=== PATIENT | male | born 1995 | race Caucasian/White ===

== ENCOUNTER 2017-11-23 20:05 | Inpatient (IN) ==
[2017-11-23 20:40] LABS: Bilirubin,Urine Negative (Negative); Blood,Urine Negative (Negative); Clarity,Urine Clear (Clear); Color,Urine Yellow (Yellow); Glucose,Urine (UA) Normal (Normal); Ketones,Urine Negative (Negative); Leukocyte Esterase,Urine Negative (Negative); Nitrite,Urine Negative (Negative); PH,Urine 6.5 pH Units (5.0-8.0); Protein,Urine Negative (Neg-Trace); Specific Gravity,Urine 1.028 (1.010-1.025); Urobilinogen,Urine Normal (Normal)
--- NOTE | 2017-11-23 21:00 | Emergency Department Note ---
Disposition Clinical Impression: Colitis Abdominal pain Qualifiers: Abdominal location: right lower quadrant Qualified Code(s): R10.31 - Right lower quadrant pain Anemia Qualifiers: Anemia type: iron deficiency Iron deficiency anemia type: chronic blood loss Qualified Code(s): D50.0 - Iron deficiency anemia secondary to blood loss ( chronic) Disposition: Admitted As Inpatient Condition: Fair Instructions: Abdominal Pain (ED), Anemia (ED) Reasons to Return/Additional Instructions: Please return to emergency room with any worsening symptoms including worsening of pain, lightheadedness, dizziness, feelings of passing out. Please be Sure to follow-up with your primary care physician as well as ep technologist within 3 days. Referrals: Clint Rodriguez MD [Partnered Physician] - Forms: ED Satisfaction Letter, Work/School Release Time of Disposition: 22:14 Abdominal Pain HPI - General Chief Complaint: ED Abdominal Pain Stated Complaint: Abdominal pain Time Seen by Provider: 11/23/17 20:31 Source: patient - History of Present Illness HPI Narrative: 22-year-old male with a past medical history of chronic abdominal pain presents to emergency room with abdominal pain. He states his pain has been present since he was a little kid and is located in the right lower quadrant, left lower quadrant, suprapubic, epigastric region. He describes the pain as both sharp and aching in nature. He had percent emergency room in July 2017 with similar symptoms and CT scan at that time revealed inflammation of the terminal ileum and colon possibly representing inflammatory bowel disease. He states he presents at this time as he now has insurance and can see a GI specialist, and his pain is also worsening and 9/10 intensity. No exacerbating or relieving symptoms. He also admits to chronic loose stools as well as intermittent vomiting following meals. Denies any symptoms of fevers, chills, chest pain, shortness of breath. Pain Scale: 9 - Related Data Home Medications Medication Instructions Recorded Confirmed Depression Pill 10/26/15 Omeprazole Magnesium [Prilosec Otc] 10/26/15 Previous Rx's Medication Instructions Recorded Ibuprofen [Motrin] 800 mg PO Q6-8H PRN #30 tablet 05/29/15 Acetaminophen w/Cod 300-30 mg 1 each PO Q6HR PRN #10 tablet 10/26/15 [Tylenol w/Codeine #3] Ciprofloxacin [Cipro] 500 mg PO BID 10 Days tablet 10/26/15 Sulfamethoxazole/Trimeth DS 1 each PO BID 10 Days tablet 10/26/15 [Bactrim DS] metroNIDAZOLE [Flagyl] 500 mg PO BID 10 Days tablet 10/26/15 methylPREDNISolone [Medrol] 4 mg PO TAPER #21 tablet 10/22/16 predniSONE [Prednisone] 20 mg PO DAILY #22 tablet 11/25/16 Ciprofloxacin HCl [Cipro] 500 mg PO BID #20 tablet 08/05/17 Ondansetron HCl [Zofran] 4 mg PO Q6HR PRN #20 tablet 08/05/17 PredniSONE [Deltasone] 20 mg PO DAILY #18 tablet 08/05/17 metroNIDAZOLE [Flagyl] 500 mg PO BID #20 tablet 08/05/17 Allergies Allergy/AdvReac Type Severity Reaction Status Date / Time No Known Allergies Allergy Verified 05/22/17 18:38 All systems ED: reviewed and negative except as stated. Review of Systems: As Per HPI Abdominal Pain PMH - Past Medical History Medical history: Reports: no medical history Male Surgical History: Reports: orthopedic, other, other Psychiatric history: Reports: no psych history - Social History Smoking status: Never smoker Alcohol use: Reports: none Drug use: Reports: none Physical Exam - General Limitations: no limitations General appearance: alert, anxious - Head Head exam: atraumatic, normocephalic, normal inspection - ENT ENT exam: normal exam, normal oropharynx, mucous membranes moist - Chest Chest inspection: Present: normal inspection, symmetric chest wall rise - Respiratory Respiratory exam: Present: normal lung sounds bilaterally. Absent: respiratory distress - Cardiovascular Cardiovascular exam: Present: regular rate, normal rhythm, normal heart sounds - Abdominal Exam Abdominal exam: Present: soft, tenderness, guarding, normal bowel sounds. Absent: distention, rebound, rigidity Abdominal tenderness: Present: RLQ, LLQ, epigastrium, mild - Extremities Exam Extremities exam: Present: normal inspection, full ROM. Absent: tenderness, pedal edema - Neurological Exam Neurological exam: Present: alert, oriented X3 - Psychiatric Psychiatric exam: Present: normal affect, normal mood - Skin Skin exam: Present: warm, dry, intact, normal color Course Course Narrative: We will obtain labs of CBC, BMP, lipase, hepatic panel. We will give Reglan for symptomatic relief. Vital Signs Temperature 98.4 F 11/23/17 20:07 Pulse Rate 86 11/23/17 20:07 Respiratory Rate 20 11/23/17 20:07 Blood Pressure 150/85 11/23/17 20:07 O2 Sat by Pulse Oximetry 100 11/23/17 20:07 Temperature 98.4 F 11/23/17 20:07 Pulse Rate 80 11/23/17 22:31 Respiratory Rate 16 11/23/17 22:31 Blood Pressure 130/76 11/23/17 22:31 O2 Sat by Pulse Oximetry 100 11/23/17 22:31 Oxygen Delivery Oxygen Delivery Room Air Abdominal Pain - MDM Narrative Medical decision making narrative: 22-year-old male presents to emergency department with chronic abdominal pain. Labs significant for a hemoglobin of 7.5. We did at this point for stool guaiac test which was negative. He will be discharged home with close follow- up with primary care physician as well as ep technologist this time. - Lab Data Result diagrams: 11/23/17 20:46 11/23/17 20:46 Lab Results 11/23/17 11/23/17 11/23/17 Range/Units 20:24 20:46 20:46 WBC 7.2 (4.3-11.1) K/mcL RBC 4.31 (4.19-5.50) M/mcL Hgb 7.5 L (12.9-16.9) g/dL Hct 28.1 L (37.5-50.1) % MCV 65.2 L (83.0-100.0) fL MCH 17.4 L (28.0-33.3) pg MCHC 26.7 L (31.6-35.5) g/dL RDW 15.4 H (11.5-14.5) % Plt Count 480 H (140-400) K/mcL MPV 10.6 (9.4-12.4) fL Immature Gran % 0.4 (0-4) % Seg Neutrophils % 58.7 % Lymphocytes % 23.1 % Monocytes % 9.6 % Eosinophils % 7.1 % Basophils % 1.1 % Neutrophils # 4.2 (1.6-8.9) K/mcL Lymphocytes # 1.7 (0.6-4.6) K/mcL Monocytes # 0.7 (0.0-1.3) K/mcL Eosinophils # 0.5 (0.0-0.6) K/mcL Basophils # 0.1 (0.0-0.2) K/mcL Hypochromasia Present A (Not Present) Microcytosis Present A (Not Present) Sodium 138 (136-145) mEq/L Potassium 3.8 (3.5-5.1) mEq/L Chloride 107 (98-107) mEq/L Carbon Dioxide 25 (23-29) mEq/L BUN 10 (6-20) mg/dL Creatinine 0.76 (0.70-1.30) mg/dL Est GFR ( Amer) > 60 (> 60) Est GFR (Non-Af Amer) > 60 (> 60) BUN/Creatinine Ratio 13 (6-26) Glucose 93 (70-105) mg/dL Calculated Osmolality 285 (280-300) Calcium 9.2 (8.6-10.3) mg/dL Total Bilirubin 0.8 (0.3-1.0) mg/dL Direct Bilirubin 0.1 (0.0-0.2) mg/dL Indirect Bilirubin 0.7 (0.0-1.2) mg/dL AST 13 (13-39) Units/L ALT 20 (7-52) Units/L Alkaline Phosphatase 80 (34-104) Units/L Serum Total Protein 7.1 (6.4-8.9) g/dL Albumin 4.4 (3.5-5.7) g/dL Globulin 2.7 (2.4-3.5) g/dL Albumin/Globulin Ratio 1.6 (1.1-2.2) Lipase 19 (11-82) Units/L Urine Color Yellow (Yellow) Urine Clarity Clear (Clear) Urine pH 6.5 (5.0-8.0) pH Units Ur Specific Dickinson 1.028 H (1.010-1.025) Urine Protein Negative (Neg-Trace) mg/dL Urine Glucose (UA) Normal (Normal) mg/dL Urine Ketones Negative (Negative) mg/dL Urine Blood Negative (Negative) Urine Nitrite Negative (Negative) Urine Bilirubin Negative (Negative) Urine Urobilinogen Normal (Normal) mg/dL Ur Leukocyte Esterase Negative (Negative) Ur Culture Indicated? NO (NO) Blood Type 11/23/17 Range/Units 23:09 WBC (4.3-11.1) K/mcL RBC (4.19-5.50) M/mcL Hgb (12.9-16.9) g/dL Hct (37.5-50.1) % MCV (83.0-100.0) fL MCH (28.0-33.3) pg MCHC (31.6-35.5) g/dL RDW (11.5-14.5) % Plt Count (140-400) K/mcL MPV (9.4-12.4) fL Immature Gran % (0-4) % Seg Neutrophils % % Lymphocytes % % Monocytes % % Eosinophils % % Basophils % % Neutrophils # (1.6-8.9) K/mcL Lymphocytes # (0.6-4.6) K/mcL Monocytes # (0.0-1.3) K/mcL Eosinophils # (0.0-0.6) K/mcL Basophils # (0.0-0.2) K/mcL Hypochromasia (Not Present) Microcytosis (Not Present) Sodium (136-145) mEq/L Potassium (3.5-5.1) mEq/L Chloride (98-107) mEq/L Carbon Dioxide (23-29) mEq/L BUN (6-20) mg/dL Creatinine (0.70-1.30) mg/dL Est GFR ( Amer) (> 60) Est GFR (Non-Af Amer) (> 60) BUN/Creatinine Ratio (6-26) Glucose (70-105) mg/dL Calculated Osmolality (280-300) Calcium (8.6-10.3) mg/dL Total Bilirubin (0.3-1.0) mg/dL Direct Bilirubin (0.0-0.2) mg/dL Indirect Bilirubin (0.0-1.2) mg/dL AST (13-39) Units/L ALT (7-52) Units/L Alkaline Phosphatase (34-104) Units/L Serum Total Protein (6.4-8.9) g/dL Albumin (3.5-5.7) g/dL Globulin (2.4-3.5) g/dL Albumin/Globulin Ratio (1.1-2.2) Lipase (11-82) Units/L Urine Color (Yellow) Urine Clarity (Clear) Urine pH (5.0-8.0) pH Units Ur Specific Dickinson (1.010-1.025) Urine Protein (Neg-Trace) mg/dL Urine Glucose (UA) (Normal) mg/dL Urine Ketones (Negative) mg/dL Urine Blood (Negative) Urine Nitrite (Negative) Urine Bilirubin (Negative) Urine Urobilinogen (Normal) mg/dL Ur Leukocyte Esterase (Negative) Ur Culture Indicated? (NO) Blood Type B NEGATIVE Attestation Statement - Attestation Attestation: I, Jesus Pena, examined this patient and my medical decision-making was reviewed with the ETCHER HAND/PA/Advanced Practice Nurse/Resident Physician. I agree with the documented findings, disposition and treatment plan as described except to the extent set forth below. 22-year-old male presents emergency Department with concerns of right lower quadrant abdominal pain, persistent diarrhea, weakness, fatigue and near syncope. Patient has a history of inflammation of the colon on the right lower quadrant however he did not follow up with GI in the past. He should not states his symptoms are similar today as they were then. Patient is anemic at 7.5 and states he feels near syncopal with minimal exertion. Patient will be transfused and admitted to the hospital for further care and evaluation and likely GI consult. Patient likely has Crohn's disease, he was started on Cipro and Flagyl and Solu-Medrol.
[2017-11-23 21:04] LABS: Basophils # 0.1 K/mcL (0.0-0.2); Basophils % 1.1 %; Eosinophils # 0.5 K/mcL (0.0-0.6); Eosinophils % 7.1 %; Hematocrit 28.1 % (37.5-50.1); Immature Granulocytes % 0.4 % (0-4); Lymphocytes # 1.7 K/mcL (0.6-4.6); Lymphocytes % 23.1 %; Mean Corpuscular HGB Conc 26.7 g/dL (31.6-35.5); Mean Corpuscular Hemoglobin 17.4 pg (28.0-33.3); Mean Corpuscular Volume 65.2 fL (83.0-100.0); Mean Platelet Volume 10.6 fL (9.4-12.4); Monocytes # 0.7 K/mcL (0.0-1.3); Monocytes % 9.6 %; Neutrophils # 4.2 K/mcL (1.6-8.9); Platelet Count 480 K/mcL (140-400); Red Blood Count 4.31 M/mcL (4.19-5.50); Red Cell Distribution Width 15.4 % (11.5-14.5); Segmented Neutrophils % 58.7 %
[2017-11-23] MEDS ORDERED: Metoclopramide 10 MG/2 ML VIAL IVP ONE (21:04)
[2017-11-23 21:33] LABS: Alanine Aminotransferase 20 Units/L (7-52); Albumin 4.4 g/dL (3.5-5.7); Albumin/Globulin Ratio 1.6 (1.1-2.2); Alkaline Phosphatase 80 Units/L (34-104); Aspartate Amino Transferase 13 Units/L (13-39); BUN/Creatinine Ratio 13 (6-26); Bilirubin,Direct 0.1 mg/dL (0.0-0.2); Bilirubin,Indirect 0.7 mg/dL (0.0-1.2); Bilirubin,Total 0.8 mg/dL (0.3-1.0); Blood Urea Nitrogen 10 mg/dL (6-20); Calcium 9.2 mg/dL (8.6-10.3); Carbon Dioxide 25 mEq/L (23-29); Chloride 107 mEq/L (98-107); Globulin 2.7 g/dL (2.4-3.5); Glucose 93 mg/dL (70-105); Lipase 19 Units/L (11-82); Osmolality,Calculated 285 (280-300); Potassium 3.8 mEq/L (3.5-5.1); Sodium 138 mEq/L (136-145); Total Protein 7.1 g/dL (6.4-8.9); eGFR For African Americans > 60 (> 60); eGFR For Non-African Americans > 60 (> 60)
[2017-11-23 21:36] LABS: Hemoglobin 7.5 g/dL (12.9-16.9)
[2017-11-23 21:37] LABS: Hypochromasia Present (Not Present); Microcytosis Present (Not Present)
[2017-11-23] MEDS ORDERED: MetroNIDAZOLE 500 MG/100 ML 500 MG/100 ML BAG IVPB ONE (22:31)
[2017-11-23] MEDS ORDERED: methylPREDNISolone 125 MG/2 ML VIAL IVP ONE (22:31)
[2017-11-24] MEDS ORDERED: 0.9 % Sodium Chloride 250 ML ONE (00:56)
[2017-11-24] MEDS ORDERED: traMADol 50 MG TABLET PO PRN (04:00)
[2017-11-24] MEDS ORDERED: Naloxone 0.4 MG/ML INJ IVP PRN (04:00)
[2017-11-24] MEDS ORDERED: Acetaminophen 325 MG TABLET PO PRN (04:00)
[2017-11-24] MEDS ORDERED: *HR* OxyCODONE Immed Rel 5 MG TABLET PO PRN (04:00)
--- NOTE | 2017-11-24 04:53 | Internal Med History&Physical ---
Date of Encounter: 11/24/17 Time of Encounter: 03:10 Assessment and Plan (1) Abdominal pain Current visit: Yes Status: Acute 1. Will keep npo and treat with pain meds. 2. Likely due to IBD/Crohn's disease. 3. Consult GI for work-up and endoscopy. 4. If pain becomes severe and/or patient develops a surgical abdomen on exam, he will need surgical consultation. However, at this time, his exam is rather benign and does not suggest such a process. Qualifiers: Abdominal location: right lower quadrant Qualified Code(s): R10.31 - Right lower quadrant pain (2) Colitis Current visit: Yes Status: Acute 1. Will keep npo and treat with IV Flagyl and Cipro. 2. Consult GI for colonoscopy and guidance for work-up of suspected Crohn's disease. 3. IV steroids initiated as well for suspected Crohn's. (3) Anemia Current visit: Yes Status: Chronic 1. Patient received one unit PRBC from ER already. 2. Will order iron studies despite one unit PRBC. Suspect iron deficiency due to chronic GI blood loss. 3. Star Iron therapy when able to take PO. Qualifiers: Anemia type: iron deficiency Iron deficiency anemia type: chronic blood loss Qualified Code(s): D50.0 - Iron deficiency anemia secondary to blood loss (chronic) (4) DVT prophylaxis Current visit: Yes Status: Acute 1. Heparin SQ. Internal Medicine - H&P: HPI Chief complaint: abdominal pain; rectal bleeding Admitted From: Emergency Dept Plans for Post Hospital Care: Home History of present illness: Mr. Mckenzie is a 22 year old male who presents with complaints of abdominal pain and rectal bleeding. He has been dealing with this off and on for about 6 years now. However, he has never sought treatment or consultation with GI due to lack of insurance and inability to pay. He now presents with about a 5 day history of acute, cramping, severe, and nauseating abdominal pain especially in his right lower quadrant size associated with rectal bleeding. These symptoms have been present currently for several years. However, this acute episode started just a couple days ago. He was seeing his PCP and in the process of getting a referral for GI over the last few months. However, with acute onset of symptoms, he came to ER for evaluation and treatment. Workup in ER included a CT scan, which revealed ileitis and findings concerning for Crohn's disease. He denies any unintentional weight loss. However, he has had appetite loss and early satiety for several weeks now. He denies any unexpected fevers, chills, night sweats, or body aches. He denies any history of blood clots. Family history is negative for any inflammatory bowel diseases. He denies any undercooked meats or fish with his meals. Past Med Surg Social Fam HX - Past Medical History Source: patient, old records reviewed, obtained from family Medical history: no medical history Psychiatric history: no psych history - Past Surgical History Surgical History: no surgical history - Social History Smoking Status: Never smoker Smokeless Tobacco Status: No Alcohol use: none Drug use: none Occupational status: employed Current living situation: Home, With Family Activity Level: Independent ambulation, Very active Recent Out of Country Travel Within the Last 8 Weeks: No - Family History Mother Living Status: Still Living Hx Family GI Disorders: No Father Living Status: Still Living Hx Family GI Disorders: No - Additional Family History Additional family history: NO FH IBD Internal Medicine - H&P: Meds Ibuprofen [Motrin] 800 mg PO Q6-8H PRN #30 tablet 05/29/15 [Rx] Acetaminophen w/Cod 300-30 mg [Tylenol w/Codeine #3] 1 each PO Q6HR PRN #10 tablet 10/26/15 [Rx] Ciprofloxacin [Cipro] 500 mg PO BID 10 Days tablet 10/26/15 [Rx] Depression Pill 10/26/15 [History] Omeprazole Magnesium [Prilosec Otc] 10/26/15 [History] Sulfamethoxazole/Trimeth DS [Bactrim DS] 1 each PO BID 10 Days tablet 10/26/15 [Rx] metroNIDAZOLE [Flagyl] 500 mg PO BID 10 Days tablet 10/26/15 [Rx] methylPREDNISolone [Medrol] 4 mg PO TAPER #21 tablet 10/22/16 [Rx] predniSONE [Prednisone] 20 mg PO DAILY #22 tablet 11/25/16 [Rx] Ciprofloxacin HCl [Cipro] 500 mg PO BID #20 tablet 08/05/17 [Rx] Ondansetron HCl [Zofran] 4 mg PO Q6HR PRN #20 tablet 08/05/17 [Rx] PredniSONE [Deltasone] 20 mg PO DAILY #18 tablet 08/05/17 [Rx] metroNIDAZOLE [Flagyl] 500 mg PO BID #20 tablet 08/05/17 [Rx] 3 Allergy/AdvReac Type Severity Reaction Status Date / Time No Known Allergies Allergy Verified 05/22/17 18:38 - Constitutional Constitutional: anorexia, no chills, no fever(s), no night sweats, no weight gain, no weight loss - EENT Eyes: no blurry vision, no change in vision Ears: no ear pain, no tinnitus Nose, mouth and throat: no bleeding gums, no mouth lesions - Cardiovascular Cardiovascular ROS IM: no chest pain, no dyspnea - Respiratory Respiratory: no cough, no hemoptysis, no chest congestion, no excessive phlegm production, no change in phlegm color - Gastrointestinal Gastrointestinal: abdominal pain, change in bowel habits, cramping, diarrhea, early satiety, hematochezia, loose stools, no coffee ground emesis, no hematemesis, no melena - Genitourinary Genitourinary ROS male: no dysuria, no flank pain, no hematuria - Musculoskeletal Musculoskeletal ROS IM: no arthralgias, no back pain - Integumentary Integumentary IM: no rash, no jaundice - Neurological Neurological ROS: no dizziness, no focal weakness, no frequent falls, no headache(s) - Psychiatric Psychiatric: no anxiety, no depression - Endocrine Endocrine IM: no polydipsia, no polyuria - Hematologic/Lymphatic Hematologic/Lymphatic: no easy bruising, no lymphadenopathy - Allergic/Immunologic Allergic/Immunologic: no wheezing, no GI upset with certain foods - Constitutional Vitals: Temp Pulse Resp BP Pulse Ox 97.7 F 79 16 119/69 99 11/24/17 03:55 11/24/17 03:55 11/24/17 03:55 11/24/17 03:55 11/24/17 03:55 General appearance: Present: cooperative, A&O X 3, pleasant, answers questions appropriately - Head Head exam: Present: normal inspection - Eye Eye exam: Present: EOMI, normal appearance, PERRL. Absent: scleral icterus Pupils: Present: normal accommodation - ENT ENT exam: Present: mucous membranes dry, normal exam, normal oropharynx Additional comments: no obvious aphtous ulcers - Neck Neck exam general surgery: Present: full ROM, supple. Absent: lymphadenopathy, tenderness, nuchal rigidity - Respiratory Respiratory exam: Present: CTAB. Absent: rales, rhonchi, wheezes - Cardiovascular Cardiovascular exam: Present: RRR, +S1, +S2. Absent: diastolic murmur, systolic murmur - GI/Abdominal GI/Abdominal exam: Present: normal bowel sounds, soft, tenderness (RLQ and RMQ) , no peritoneal signs. Absent: guarding, hepatomegaly, mass, rebound, splenomegaly - Extremities Exam Extremities exam: Present: full ROM, normal capillary refill, warm, radial pulses palpable and symmetrical. Absent: calf tenderness, joint swelling, pedal edema, tenderness - Back Exam Back exam: Absent: CVA tenderness (L), CVA tenderness (R) - Neurological Exam Neurological exam: Present: alert, CN II-XII intact, oriented X3, no focal deficits - Psychiatric Psychiatric exam: Present: normal affect, normal mood - Skin Skin exam: Present: dry, warm. Absent: rash Internal Med - H&P Results - Labs CBC & Chem 7: 11/23/17 20:46 11/23/17 20:46 - Diagnostic Studies CT scan - abdomen Status: image reviewed by me (report reviewed as well - distal ileitis noted)
[2017-11-24] MEDS: 0.9 % Sodium Chloride w KCl 20 MEQ/1,000 ML MLS IVC SCH ×2 (05:48→17:39)
[2017-11-24] MEDS ORDERED: *HR* Heparin 5,000 UNIT/ML VIAL SQ SCH (06:00)
[2017-11-24 06:07] LABS: Hemoglobin 8.7 g/dL (12.9-16.9); Immature Granulocytes % 0.8 % (0-4)
[2017-11-24 06:09] LABS: Basophils # 0.1 K/mcL (0.0-0.2); Basophils % 0.5 %; Eosinophils % 0.1 %; Hematocrit 32.4 % (37.5-50.1); Lymphocytes # 0.6 K/mcL (0.6-4.6); Lymphocytes % 5.3 %; Mean Corpuscular HGB Conc 26.9 g/dL (31.6-35.5); Mean Corpuscular Hemoglobin 17.9 pg (28.0-33.3); Mean Corpuscular Volume 66.7 fL (83.0-100.0); Mean Platelet Volume 10.8 fL (9.4-12.4); Monocytes # 0.1 K/mcL (0.0-1.3); Monocytes % 0.8 %; Neutrophils # 9.8 K/mcL (1.6-8.9); Platelet Count 481 K/mcL (140-400); Red Blood Count 4.86 M/mcL (4.19-5.50); Red Cell Distribution Width 16.5 % (11.5-14.5); Segmented Neutrophils % 92.5 %
[2017-11-24 06:10] LABS: INR 1.1; Prothrombin Time 11.5 Seconds (9.4-12.1)
[2017-11-24 06:23] LABS: % Iron Saturation 2 % (20-55); Iron 13 mcg/dL (65-175); Transferrin 419 mg/dL (203-362)
[2017-11-24 06:25] LABS: Alanine Aminotransferase 21 Units/L (7-52); Albumin 4.5 g/dL (3.5-5.7); Albumin/Globulin Ratio 1.7 (1.1-2.2); Alkaline Phosphatase 81 Units/L (34-104); Aspartate Amino Transferase 14 Units/L (13-39); BUN/Creatinine Ratio 13 (6-26); Bilirubin,Total 0.9 mg/dL (0.3-1.0); Blood Urea Nitrogen 9 mg/dL (6-20); Calcium 9.6 mg/dL (8.6-10.3); Carbon Dioxide 20 mEq/L (23-29); Chloride 107 mEq/L (98-107); Globulin 2.6 g/dL (2.4-3.5); Glucose 123 mg/dL (70-105); Osmolality,Calculated 284 (280-300); Potassium 4.4 mEq/L (3.5-5.1); Sodium 137 mEq/L (136-145); Total Protein 7.1 g/dL (6.4-8.9); eGFR For African Americans > 60 (> 60); eGFR For Non-African Americans > 60 (> 60)
[2017-11-24 06:57] LABS: Platelet Estimate Normal (Normal)
[2017-11-24 06:58] LABS: Anisocytosis 1+ (Not Present); Microcytosis Present (Not Present)
[2017-11-24] MEDS: MetroNIDAZOLE 500 MG/100 ML 500 MG/100 ML BAG IVPB SCH ×2 (07:55→16:00)
[2017-11-24] MEDS: methylPREDNISolone 125 MG/2 ML VIAL IVP SCH ×2 (07:55→16:00)
--- NOTE | 2017-11-24 11:07 | Internal Med Progress Note ---
Date of Encounter: 11/24/17 Time of Encounter: 11:05 - Assessment and plan (1) Colitis Current Visit: Yes Status: Acute Assessment and plan: Rule out infectious etiology. We will send stool PCR panel. GI to see. Nothing by mouth. ESR is mildly elevated. CRP is normal. Check FOBT. Continue Cipro and Flagyl. Continue IV steroids. Continue IV fluids. (2) Anemia Current Visit: Yes Status: Chronic Assessment and plan: MCV in 60s. Continue to trend H&H. H&H every 8 hours. Hemoglobin trended up after transfusion. check iron studies Qualifiers: Anemia type: iron deficiency Iron deficiency anemia type: chronic blood loss Qualified Code(s): D50.0 - Iron deficiency anemia secondary to blood loss (chronic) (3) DVT prophylaxis Current Visit: Yes Status: Acute Assessment and plan: Given her low hemoglobin we will place SCDs. Stop heparin subcutaneous. - Subjective Interval history: Patient seen and examined. No acute events. Patient admitted with abdominal pain and rectal bleed. Received 1 unit PRBCs yesterday. Also received IV steroids for suspected Crohn's. CT abdomen and pelvis done showed ileitis and findings concerning for Crohn's disease. Patient has been dealing with abdominal pain and rectal bleed for the past 6 years per his account. Has trouble keeping food down as well. No weight loss. Has not seek any help to the insurance issues. These symptoms have worsened for the last 5 days. - Constitutional Vitals: Temp Pulse Resp BP Pulse Ox 97.4 F L 77 18 134/70 99 11/24/17 10:47 11/24/17 10:47 11/24/17 10:47 11/24/17 10:47 11/24/17 10:47 General appearance: Present: cooperative, A&O X 3, pleasant, answers questions appropriately Exam: GEN: NAD CVS: RRR. S1, S2, No m/r/g RESP: CTAB ABD: Soft, NT, ND, +BS EXT: No edema. 2+ DP. No rashes NEURO: Nonfocal Internal Medicine: Result - Labs CBC & Chem 7: 11/24/17 05:32 11/24/17 05:32 Labs: Short CBC 11/24/17 Range/Units 05:32 WBC 10.6 (4.3-11.1) K/mcL Hgb 8.7 L (12.9-16.9) g/dL Hct 32.4 L (37.5-50.1) % Plt Count 481 H (140-400) K/mcL Neutrophils # 9.8 H (1.6-8.9) K/mcL BMP 11/24/17 05:32 Sodium 137 Potassium 4.4 Chloride 107 Carbon Dioxide 20 L BUN 9 Creatinine 0.70 Glucose 123 H Calcium 9.6 Liver Function 11/24/17 Range/Units 05:32 Total Bilirubin 0.9 (0.3-1.0) mg/dL AST 14 (13-39) Units/L ALT 21 (7-52) Units/L Alkaline Phosphatase 81 (34-104) Units/L Albumin 4.5 (3.5-5.7) g/dL - ABG Interpretation ABG results: PT/INR, D-dimer PT 11.5 Seconds (9.4-12.1) 11/24/17 05:32 Consult Discharge Plan - Plan Referrals: Chantell Schneider, [employer] [Primary Care Provider] -
[2017-11-24 11:57] LABS: Hematocrit 33.6 % (37.5-50.1); Hemoglobin 9.2 g/dL (12.9-16.9)
--- NOTE | 2017-11-24 13:15 | Gastroenterology Consult Note ---
<Nicole Ceballos - Last Filed: 11/24/17 13:27> Date of Encounter: 11/24/17 Time of Encounter: 11:00 - Assessment and plan (1) Colitis Current Visit: Yes Status: Acute Assessment and plan: CT shows possible crohn's colitis. Will prep and schedule for EGD/colonoscopy tomorrow. Will check inflammatory markers. Pt has been medicated with solumedrol and reports some improvement in abdominal pain. (2) Anemia Current Visit: Yes Status: Chronic Assessment and plan: Pt has microcytic anemia. Iron is 13, will give venofer, and prep for EGD/ colonosocopy tomorrow. Qualifiers: Anemia type: iron deficiency Iron deficiency anemia type: chronic blood loss Qualified Code(s): D50.0 - Iron deficiency anemia secondary to blood loss (chronic) - Time Spent With Patient Total time spent is greater than 50% in coordination of care (as documented) at patient's floor/unit and/or counseling patient: GI History of Present Illness - Data of Consult Patient: new to practice Consult date: 11/24/17 Requesting Physician: Cedric Padron - Consult Narrative Reason for consult: abdominal pain, abnormal CT abdomen History of present illness: Mr Yi is a 22 year old male who presents with diarrhea and abdominal pain which has been ongoing for at least 6 years. He states he had an appointment with GI in the past but was unable to come due to lack of insurance. He reports a 5 day history of acute, cramping, severe, and nauseating abdominal pain especially in his right lower quadrant size associated with rectal bleeding. He was seeing his PCP and in the process of getting a referral for GI over the last few months. However, with acute onset of symptoms, he came to ER for evaluation and treatment. Workup in ER included a CT scan, which revealed ileitis and findings concerning for Crohn's disease. He denies any unintentional weight loss. However, he has had appetite loss and early satiety for several weeks now. He denies any unexpected fevers, chills, night sweats, or body aches. He denies any history of blood clots. Family history is negative for any inflammatory bowel diseases. He denies any . Hgb 7.5 on admission was transfused 1 unit PRBCs and is now 8.7 (microcytic), iron level 12. Colonoscopy: denies EGD: denies NSAIDS/ASA: denies Anticoagulants: denies Past Med Surg Social Fam HX - Past Medical History Medical history: no medical history Psychiatric history: no psych history - Past Surgical History Surgical History: no surgical history - Social History Smoking Status: Never smoker Smokeless Tobacco Status: No Alcohol use: none Drug use: none - Family History Mother Living Status: Still Living Hx Family GI Disorders: No Father Living Status: Still Living Hx Family GI Disorders: No Review of Systems: GI: as per [facility]: denies fever, has some chills EYES: denies yellow discoloration ENT: denies pain with swallowing or difficulty swallowing CARDIO: denies chest pain, palpitations RESP: No Shortness of breath with exertion : denies change in color of urine NEURO: denies any weakness HEME: Denies any bruising MS: denies joint pain, joint swelling or back pain. DERM: denies rash or itching PSYCH: Denies history of anxiety or depression - Constitutional Vitals: Temp Pulse Resp BP Pulse Ox 97.4 F L 77 18 134/70 99 11/24/17 10:47 11/24/17 10:47 11/24/17 10:47 11/24/17 10:47 11/24/17 10:47 Exam: CONSTITUTIONAL:~alert, no acute distress.~HEAD:~normocephalic.~EYES:~no jaundice.~NECK:~no obvious swelling.~HEART:~regular rate and rhythm, no murmurs. ~LUNGS:~bilateral good air entry.~ABDOMEN:~non distended, soft, non tander, no masses pulpable, no organomegaly.~RECTAL EXAM:~Deferred.~EXTREMITIES:~no clubbing, cyanosis or edema, scars noted to bilateral arms.~SKIN:~pallor noted, no stigmata of chronic liver disease.~NEUROLOGIC:~no obvious focal defect.~~~~ Results - Labs CBC & Chem 7: 11/24/17 11:37 11/24/17 05:32 Labs: Last Result ESR 21 mm/hr (0-10) H 11/24/17 09:14 Calcium 9.6 mg/dL (8.6-10.3) 11/24/17 05:32 Iron 13 mcg/dL (65-175) L 11/24/17 05:32 % Saturation 2 % (20-55) L 11/24/17 05:32 Transferrin 419 mg/dL (203-362) H 11/24/17 05:32 C-Reactive Protein 6 mg/L (Less than 10) 11/24/17 09:14 Entire Visit Hgb 9.2 g/dL (12.9-16.9) L 11/24/17 11:37 Hct 33.6 % (37.5-50.1) L 11/24/17 11:37 PT 11.5 Seconds (9.4-12.1) 11/24/17 05:32 Total Bilirubin 0.9 mg/dL (0.3-1.0) 11/24/17 05:32 AST 14 Units/L (13-39) 11/24/17 05:32 ALT 21 Units/L (7-52) 11/24/17 05:32 Lipase 19 Units/L (11-82) 11/23/17 20:46 - ABG ABG results: PT/INR, D-dimer PT 11.5 Seconds (9.4-12.1) 11/24/17 05:32 Consult Discharge Plan - Plan Referrals: Chantell Schneider, [facility] [Primary Care Provider] - <Beverly Reece - Last Filed: 11/24/17 14:33> Date of Encounter: 11/24/17 Time of Encounter: 14:00 - Time Spent With Patient Total time spent is greater than 50% in coordination of care (as documented) at patient's floor/unit and/or counseling patient: GI History of Present Illness - Data of Consult Requesting Physician: Cedric Padron - Consult Narrative History of present illness: Mr. Mckenzie is a 22 year old male - Constitutional Vitals: Temp Pulse Resp BP Pulse Ox 97.4 F L 77 18 134/70 99 11/24/17 10:47 11/24/17 10:47 11/24/17 10:47 11/24/17 10:47 11/24/17 10:47 Results - Labs CBC & Chem 7: 11/24/17 11:37 11/24/17 05:32 Labs: Last Result ESR 21 mm/hr (0-10) H 11/24/17 09:14 Calcium 9.6 mg/dL (8.6-10.3) 11/24/17 05:32 Iron 13 mcg/dL (65-175) L 11/24/17 11:37 % Saturation 2 % (20-55) L 11/24/17 11:37 Transferrin 450 mg/dL (203-362) H 11/24/17 11:37 Ferritin < 8 ng/ml (20-250) L 11/24/17 11:37 C-Reactive Protein 6 mg/L (Less than 10) 11/24/17 09:14 Entire Visit Hgb 9.2 g/dL (12.9-16.9) L 11/24/17 11:37 Hct 33.6 % (37.5-50.1) L 11/24/17 11:37 PT 11.5 Seconds (9.4-12.1) 11/24/17 05:32 Ferritin < 8 ng/ml (20-250) L 11/24/17 11:37 Total Bilirubin 0.9 mg/dL (0.3-1.0) 11/24/17 05:32 AST 14 Units/L (13-39) 11/24/17 05:32 ALT 21 Units/L (7-52) 11/24/17 05:32 Lipase 19 Units/L (11-82) 11/23/17 20:46 - ABG ABG results: PT/INR, D-dimer PT 11.5 Seconds (9.4-12.1) 11/24/17 05:32 - Attending Attestation I have personally performed a face to face evaluation on this patient. I have reviewed and agree with the care plan. History and Exam by me shows: Pt with ABN imaging TI: Rec; Colon with TI exam
[2017-11-24 13:58] LABS: % Iron Saturation 2 % (20-55); Ferritin < 8 ng/ml (20-250); Iron 13 mcg/dL (65-175); Transferrin 450 mg/dL (203-362)
[2017-11-24 16:03] LABS: Folate 13.6 ng/mL (3.0-16.0)
[2017-11-24] MEDS ORDERED: SODIUM CHLORIDE/NAHCO3/KCL/PEG 4,000 ML SOLN.RECON PO ONE (17:00)
[2017-11-24] MEDS ORDERED: Ondansetron 4 MG/2 ML VIAL IVP PRN (17:34)
[2017-11-24 18:51] LABS: Hematocrit 30.6 % (37.5-50.1); Hemoglobin 8.1 g/dL (12.9-16.9)
[2017-11-25] MEDS: methylPREDNISolone 125 MG/2 ML VIAL IVP SCH ×3 (01:03→15:47)
[2017-11-25] MEDS: MetroNIDAZOLE 500 MG/100 ML 500 MG/100 ML BAG IVPB SCH ×3 (01:03→15:48)
[2017-11-25 05:41] LABS: Basophils % 0.1 %; Hemoglobin 7.8 g/dL (12.9-16.9); Lymphocytes % 2.8 %; Monocytes % 2.1 %; Nucleated Red Blood Cells 0.2 /100 WBC (0); Red Cell Distribution Width 16.1 % (11.5-14.5)
[2017-11-25 05:43] LABS: Hematocrit 28.5 % (37.5-50.1); Immature Granulocytes % 0.9 % (0-4); Lymphocytes # 0.5 K/mcL (0.6-4.6); Mean Corpuscular HGB Conc 27.4 g/dL (31.6-35.5); Mean Corpuscular Volume 65.8 fL (83.0-100.0); Mean Platelet Volume 10.5 fL (9.4-12.4); Monocytes # 0.4 K/mcL (0.0-1.3); Neutrophils # 16.4 K/mcL (1.6-8.9); Platelet Count 480 K/mcL (140-400); Red Blood Count 4.33 M/mcL (4.19-5.50); Segmented Neutrophils % 94.1 %
[2017-11-25 05:59] LABS: BUN/Creatinine Ratio 11 (6-26); Blood Urea Nitrogen 7 mg/dL (6-20); Calcium 9.3 mg/dL (8.6-10.3); Carbon Dioxide 22 mEq/L (23-29); Chloride 110 mEq/L (98-107); Glucose 120 mg/dL (70-105); Magnesium 1.9 mg/dL (1.6-2.6); Osmolality,Calculated 287 (280-300); Sodium 139 mEq/L (136-145); eGFR For African Americans > 60 (> 60); eGFR For Non-African Americans > 60 (> 60)
[2017-11-25 06:36] LABS: Hypochromasia Present (Not Present); Microcytosis Present (Not Present)
[2017-11-25 06:37] LABS: Platelet Estimate Normal (Normal)
[2017-11-25] MEDS ORDERED: Lidocaine -MPF 2% 2 ML VIAL ONE (11:17)
[2017-11-25] MEDS ORDERED: Propofol 500 MG/50 ML INFUS..BTL ONE (11:18)
[2017-11-25 11:26] LABS: Hematocrit 29.7 % (37.5-50.1)
[2017-11-25] MEDS ORDERED: *HR* Propofol 200 MG/20 ML VIAL IVP ONE (12:19)
--- NOTE | 2017-11-25 12:38 | Anesthesia Evaluation PreOp ---
Date of Encounter: 11/25/17 Time of Encounter: 12:36 - Past History Planned Operation: EGD / Colonoscopy Cardiac History: Denies any Significant Hx Pulmonary History: Denies Any Significant HX VISITOR SERVICES REPRESENTATIVE History: Denies Any Significant HX Other Medical History: Other (anemia, GI abdominal pain / rectal bleeding) Anesthesia History: No Prior Anesthetic Complications Alcohol Use: none Drug use: none Medications and Allergies No Known Home Drugs 11/24/17 [History] 3 Allergy/AdvReac Type Severity Reaction Status Date / Time No Known Allergies Allergy Verified 11/24/17 10:10 - Meds/Allergy Pre-op Review Medications Reviewed: Yes Allergies Reviewed: Yes Beta Blockers on Current Med List: No Anesthesia Results - Labs 11/25/17 11:10 11/25/17 05:13 Anesthesia Exam HR 72, BP 120/70, RR 16, Spo2 98 Height: 1.73m Weight: 100 NPO (# of Hours): 8 - HEENT Pupil (Motor): Pupils equal Mallampati: III Teeth: Normal Oral Opening: Greater than 3 - VISITOR SERVICES REPRESENTATIVE LOC: Oriented VISITOR SERVICES REPRESENTATIVE Motor: Normal RUE, Normal LUE, Normal RLE, Normal LLE, Normal Face VISITOR SERVICES REPRESENTATIVE Sensory: Normal: RUE, LUE, RLE, LLE, Face - Cardiac Rhythm: Regular Murmur: None JVD: No Carotid Bruit: No - Pulmonary Breath Sounds: bilateral Clear Respiratory Effort: Symmetrical Anesthesia Assess/Plan ASA Score: 2 Modified [place] Scale for Level of Consciousness: Cooperative, oriented, and tranquil Anesthetic Plan: MAC Monitoring Plan: Standard Monitors Recovery Plan: Other
--- NOTE | 2017-11-25 18:26 | Internal Med Progress Note ---
Date of Encounter: 11/25/17 Time of Encounter: 11:00 - Assessment and plan (1) Colitis Current Visit: Yes Status: Acute Assessment and plan: -Patient with continued lower abdomen pain -Patient also now with leukocytosis -Continue date 3 of IV Cipro/Flagyl -GI following with plans for EGD/colonoscopy today (2) Anemia Current Visit: Yes Status: Chronic Assessment and plan: Patient with acute blood loss anemia Hemodynamically stable Plans for EGD/colonoscopy as above Continue to monitor H&H Qualifiers: Anemia type: iron deficiency Iron deficiency anemia type: unspecified iron deficiency Qualified Code(s): D50.9 - Iron deficiency anemia, unspecified - Subjective Interval history: Patient still with abdominal discomfort secondary to colitis Scheduled for EGD/colonoscopy later today relation per GI - Constitutional Vitals: Temp Pulse Resp BP Pulse Ox 98.2 F 85 16 136/77 98 11/25/17 14:15 11/25/17 14:15 11/25/17 14:15 11/25/17 14:15 11/25/17 14:15 General appearance: Present: cooperative, A&O X 3, pleasant, no acute distress, answers questions appropriately - Respiratory Respiratory exam: Present: CTAB. Absent: accessory muscle use, rales, rhonchi, wheezes - Cardiovascular Cardiovascular exam: Present: RRR, +S1, +S2. Absent: diastolic murmur, gallop, rubs, systolic murmur - GI/Abdominal GI/Abdominal exam: Present: soft, tenderness (Generalized tenderness to palpation). Absent: firm, no peritoneal signs Internal Medicine: Result - Labs CBC & Chem 7: 11/25/17 11:10 11/25/17 05:13 Labs: Short CBC 11/24/17 11/25/17 11/25/17 Range/Units 18:29 05:13 11:10 WBC 17.4 H D (4.3-11.1) K/mcL Hgb 8.1 L 7.8 L 8.0 L (12.9-16.9) g/dL Hct 30.6 L 28.5 L 29.7 L (37.5-50.1) % Plt Count 480 H (140-400) K/mcL Neutrophils # 16.4 H (1.6-8.9) K/mcL BMP 11/25/17 05:13 Sodium 139 Potassium 4.0 Chloride 110 H Carbon Dioxide 22 L BUN 7 Creatinine 0.64 L Glucose 120 H Calcium 9.3 - ABG Interpretation ABG results: PT/INR, D-dimer PT 11.5 Seconds (9.4-12.1) 11/24/17 05:32 Consult Discharge Plan - Plan Referrals: Chantell Schneider, [facility] [Primary Care Provider] -
[2017-11-25 19:23] LABS: Hematocrit 30.3 % (37.5-50.1); Hemoglobin 8.4 g/dL (12.9-16.9)
[2017-11-26] MEDS: methylPREDNISolone 125 MG/2 ML VIAL IVP SCH ×2 (00:51→07:36)
[2017-11-26] MEDS: MetroNIDAZOLE 500 MG/100 ML 500 MG/100 ML BAG IVPB SCH ×2 (00:51→07:36)
[2017-11-26 09:32] LABS: ANA IgG by ELISA NONE DETECTED (None Detected); Saccharomyces cerevisiae IgA 45.7 Units (0.0-24.9)
[2017-11-26 10:21] LABS: Basophils % 0.1 %; Mean Platelet Volume 10.8 fL (9.4-12.4); Monocytes % 2.8 %; Nucleated Red Blood Cells 0.1 /100 WBC (0)
[2017-11-26 10:22] LABS: Hematocrit 29.2 % (37.5-50.1); Hemoglobin 8.1 g/dL (12.9-16.9); Immature Granulocytes % 1.8 % (0-4); Lymphocytes % 3.2 %; Mean Corpuscular HGB Conc 27.7 g/dL (31.6-35.5); Mean Corpuscular Hemoglobin 18.2 pg (28.0-33.3); Mean Corpuscular Volume 65.6 fL (83.0-100.0); Monocytes # 0.7 K/mcL (0.0-1.3); Neutrophils # 21.4 K/mcL (1.6-8.9); Platelet Count 527 K/mcL (140-400); Red Blood Count 4.45 M/mcL (4.19-5.50); Red Cell Distribution Width 16.8 % (11.5-14.5); Segmented Neutrophils % 92.1 %
[2017-11-26 10:23] LABS: Lymphocytes # 0.7 K/mcL (0.6-4.6)
[2017-11-26 10:43] VITALS: BP 133/72
[2017-11-26 10:44] LABS: BUN/Creatinine Ratio 17 (6-26); Blood Urea Nitrogen 12 mg/dL (6-20); Calcium 9.3 mg/dL (8.6-10.3); Carbon Dioxide 25 mEq/L (23-29); Chloride 107 mEq/L (98-107); Glucose 117 mg/dL (70-105); Osmolality,Calculated 289 (280-300); Sodium 139 mEq/L (136-145); eGFR For African Americans > 60 (> 60); eGFR For Non-African Americans > 60 (> 60)
[2017-11-26 11:33] LABS: Hypochromasia Present (Not Present); Platelet Estimate Increased (Normal)
--- NOTE | 2017-11-26 12:32 | Discharge Summary ---
- NOTES TO OUTPATIENT PROVIDER Notes to Outpatient Provider: For all for GI specialist Orders not resulted at time of discharge: Pending orders 11/24/17 08:59 Calprotectin, Fecal Routine 11/24/17 09:14 ROSE IgG CODY rflx IFA Routine MPO/PR3 (ANCA) Antibodies Routine Saccharomyces cerevisiae Abs Routine 11/24/17 18:29 QuantiFERON-TB Gold In-Tube Routine TPMT Genotyping 4 Variants Routine 11/25/17 13:37 Surgical Pathology [PTH] Routine Date of Encounter: 11/26/17 Time of Encounter: 11:00 - Discharge Diagnosis (1) Colitis Priority: Primary Status: Acute (2) Anemia Priority: Secondary (duodenal ulcer) Status: Chronic Qualifiers: Anemia type: iron deficiency Iron deficiency anemia type: chronic blood loss Qualified Code(s): D50.0 - Iron deficiency anemia secondary to blood loss (chronic) (3) Duodenal ulcer Priority: Primary Status: Acute Hospital course: Patient is a 22-year-old male without any significant past medical history who presents to the ER on 11/24/17 due to abdominal pain and rectal bleeding. He has been dealing with this off and on for about 6 years now. However, he has never sought treatment or consultation with GI due to lack of insurance and inability to pay. He now presents with about a 5 day history of acute, cramping , severe, and nauseating abdominal pain especially in his right lower quadrant size associated with rectal bleeding. These symptoms have been present currently for several years. However, this acute episode started just a couple days ago. He was seeing his PCP and in the process of getting a referral for GI over the last few months. However, with acute onset of symptoms, he came to ER for evaluation and treatment. In the ER, CT scan revealed ileitis and findings concerning for Crohn's disease. He was admitted to the medical surgical floor for further workup. GI was consulted with recommendations for EGD and colonoscopy. EGD showed LA grade B reflux esophagitis in addition to multiple nonbleeding duodenal ulcers without stigmata of bleeding. Colonoscopy without any symptoms and findings. Patient wanted to be discharged due to in the family. He will be discharged to start Carafate and omeprazole for duodenal ulcers and to continue a 10 day course of Cipro and Flagyl for colitis. Patient will need to follow up with GI and primary care provider as outpatient. - Time Spent with Patient Total time spent providing and/or coordinating discharge services: Less than 30 minutes - Discharge Medications Prescriptions: Pantoprazole [Protonix] 40 mg IV Q12HR #60 vial Ciprofloxacin [Cipro] 500 mg PO BID #20 tablet metroNIDAZOLE [Flagyl] 500 mg PO TID #30 tablet Omeprazole [PriLOSEC] 20 mg PO DAILY #60 cap Sucralfate [Carafate] 1 gm PO 0730,1630 #60 tablet Home Medications: Ciprofloxacin [Cipro] 500 mg PO BID #20 tablet 11/26/17 [Rx] Omeprazole [PriLOSEC] 20 mg PO DAILY #60 cap 11/26/17 [Rx] Pantoprazole [Protonix] 40 mg IV Q12HR #60 vial 11/26/17 [Rx] Sucralfate [Carafate] 1 gm PO 0730,1630 #60 tablet 11/26/17 [Rx] metroNIDAZOLE [Flagyl] 500 mg PO TID #30 tablet 11/26/17 [Rx] Allergies/Adverse Reactions: 3 Allergy/AdvReac Type Severity Reaction Status Date / Time No Known Allergies Allergy Verified 11/24/17 10:10 Date of admission: 11/24/17 04:00 Primary care physician: Chantell Schneider CNP - Constitutional Vitals: Temp Pulse Resp BP Pulse Ox 97.9 F 91 16 133/72 97 11/26/17 10:41 11/26/17 10:41 11/26/17 10:41 11/26/17 10:41 11/26/17 10:41 General appearance: Present: cooperative, A&O X 3, pleasant, no acute distress, answers questions appropriately - Patient Status Disposition: Home, Self-Care Condition: Good - Discharge Instructions Follow Up With: Chantell Schneider CNP [Primary Care Provider] - 12/03/17 10:00 am Beverly Reece MD [Partnered Physician] - (Web Request. Office will call to give appt. date and time. Thank you)
[2017-11-27 08:14] LABS: Myeloperoxidase Ab 2 AU/mL (0-19); Serine Protease-3 Antibody 0 AU/mL (0-19)
[2017-11-28 01:48] LABS: QuantiFERON Mitogen minus NIL 2.99 IU/mL
[2017-11-28 07:54] LABS: QuantiFERON NIL 0.02 IU/mL; QuantiFERON-TB Gold In-Tube NEGATIVE (Negative)
[2017-12-01 13:37] LABS: Thiopurine Methy Genotyp NEG/NEG; Thiopurine Methyl Gen Specimen WHOLE BLOOD
[2017-12-01 14:50] LABS: TPMT Predicted Phenotype NORMAL
== END 2017-11-26 12:45 | disposition home or self-care (01) | DRG 392 ==
LOC: EMEROO 20:05 → 3ANU 20:05 → SUATTDRO 11-24 04:00
PROVIDERS: ADMIT Internal Medicine; ATTEND Hospitalist
PROC: ENDOEBX (2017-11-25 13:00)

== ENCOUNTER 2021-03-05 18:32 | Observation (INO) ==
[2021-03-05] MEDS ORDERED: Isovue-370 500 ML BOTTLE IVP ONE (19:57)
[2021-03-05] MEDS ORDERED: *HR* HYDROmorphone (PF) 1 MG/ML SYRINGE IVP ONE (19:57)
[2021-03-05] MEDS ORDERED: 0.9 % Sodium Chloride 1,000 ML IVC ONE (19:57)
[2021-03-05] MEDS ORDERED: Ondansetron 4 MG/2 ML VIAL IVP ONE (19:57)
[2021-03-05 20:49] LABS: White Blood Count 10.5 K/mcL (4.3-11.1)
[2021-03-05 20:50] LABS: Basophils # 0.1 K/mcL (0.0-0.2); Basophils % 0.9 %; Eosinophils # 0.3 K/mcL (0.0-0.6); Eosinophils % 3.2 %; Hemoglobin 15.1 g/dL (12.9-16.9); Immature Granulocytes % 0.6 % (0-4); Lymphocytes # 1.2 K/mcL (0.6-4.6); Mean Corpuscular HGB Conc 32.8 g/dL (31.6-35.5); Mean Corpuscular Hemoglobin 27.2 pg (28.0-33.3); Mean Corpuscular Volume 82.7 fL (83.0-100.0); Mean Platelet Volume 10.7 fL (9.4-12.4); Monocytes # 0.8 K/mcL (0.0-1.3); Monocytes % 7.9 %; Platelet Count 346 K/mcL (140-400); Red Blood Count 5.56 M/mcL (4.19-5.50); Segmented Neutrophils % 76.4 %
[2021-03-05 20:57] LABS: Bilirubin,Urine Negative (Negative); Blood,Urine Trace (Negative); Clarity,Urine Clear (Clear); Color,Urine Yellow (Yellow); Glucose,Urine (UA) Normal (Normal); Ketones,Urine Negative (Negative); Leukocyte Esterase,Urine Negative (Negative); Mucus,Urine Few per lpf (None-Few); Nitrite,Urine Negative (Negative); PH,Urine 6.5 pH Units (5.0-8.0); Protein,Urine Trace mg/dL (Neg-Trace); RBC,Urine 0-3 per hpf (0-3); Specific Gravity,Urine > 1.030 (1.010-1.025); Urobilinogen,Urine Normal (Normal); WBC,Urine 0-3 per hpf (0-3)
[2021-03-05 21:14] LABS: Alanine Aminotransferase 29 Units/L (7-52); Albumin 4.3 g/dL (3.5-5.7); Albumin/Globulin Ratio 1.7 (1.1-2.2); Alkaline Phosphatase 63 Units/L (34-104); Aspartate Amino Transferase 16 Units/L (13-39); BUN/Creatinine Ratio 13 (6-26); Bilirubin,Direct 0.1 mg/dL (0.0-0.2); Bilirubin,Indirect 0.8 mg/dL (0.0-1.0); Bilirubin,Total 0.9 mg/dL (0.3-1.0); Blood Urea Nitrogen 10 mg/dL (6-20); Calcium 9.4 mg/dL (8.6-10.3); Carbon Dioxide 25 mEq/L (23-29); Chloride 106 mEq/L (98-107); Globulin 2.6 g/dL (2.4-3.5); Glucose 84 mg/dL (70-105); Osmolality,Calculated 286 (280-300); Potassium 3.9 mEq/L (3.5-5.1); Sodium 139 mEq/L (136-145); Total Protein 6.9 g/dL (6.4-8.9); Troponin I < 0.03 ng/mL (< 0.04); eGFR For African Americans > 60 (> 60); eGFR For Non-African Americans > 60 (> 60)
[2021-03-06] MEDS ORDERED: Naloxone 0.4 MG/ML INJ IVP PRN (00:35)
[2021-03-06] MEDS ORDERED: Ondansetron 4 MG/2 ML VIAL IVP PRN (00:35)
[2021-03-06 01:09] LABS: Bilirubin,Urine Negative (Negative); Blood,Urine Negative (Negative); Clarity,Urine Clear (Clear); Color,Urine Colorless (Yellow); Glucose,Urine (UA) Normal (Normal); Ketones,Urine Negative (Negative); Leukocyte Esterase,Urine Negative (Negative); Nitrite,Urine Negative (Negative); Protein,Urine Negative (Neg-Trace); Specific Gravity,Urine > 1.030 (1.010-1.025); Urobilinogen,Urine Normal (Normal)
[2021-03-06] MEDS: Acetaminophen 325 MG TABLET PO PRN ×2 (01:21→11:38)
[2021-03-06] MEDS: 0.9 % Sodium Chloride 1,000 ML IVC SCH ×2 (01:21→11:27)
[2021-03-06 07:46] LABS: Basophils # 0.1 K/mcL (0.0-0.2); Basophils % 0.9 %; Eosinophils # 0.4 K/mcL (0.0-0.6); Eosinophils % 5.1 %; Hematocrit 42.6 % (37.5-50.1); Immature Granulocytes % 0.7 % (0-4); Lymphocytes # 1.2 K/mcL (0.6-4.6); Lymphocytes % 14.6 %; Mean Corpuscular HGB Conc 31.5 g/dL (31.6-35.5); Mean Corpuscular Hemoglobin 26.9 pg (28.0-33.3); Mean Corpuscular Volume 85.5 fL (83.0-100.0); Monocytes # 0.7 K/mcL (0.0-1.3); Neutrophils # 5.6 K/mcL (1.6-8.9); Platelet Count 283 K/mcL (140-400); Red Blood Count 4.98 M/mcL (4.19-5.50); Red Cell Distribution Width 13.2 % (11.5-14.5); Segmented Neutrophils % 69.7 %
[2021-03-06 07:58] LABS: Hemoglobin 13.4 g/dL (12.9-16.9)
[2021-03-06 08:06] LABS: Alanine Aminotransferase 26 Units/L (7-52); Albumin 3.7 g/dL (3.5-5.7); Albumin/Globulin Ratio 1.7 (1.1-2.2); Alkaline Phosphatase 52 Units/L (34-104); Aspartate Amino Transferase 16 Units/L (13-39); BUN/Creatinine Ratio 12 (6-26); Bilirubin,Total 0.9 mg/dL (0.3-1.0); Blood Urea Nitrogen 10 mg/dL (6-20); Calcium 8.8 mg/dL (8.6-10.3); Carbon Dioxide 25 mEq/L (23-29); Chloride 108 mEq/L (98-107); Globulin 2.2 g/dL (2.4-3.5); Glucose 84 mg/dL (70-105); Magnesium 2.1 mg/dL (1.6-2.6); Osmolality,Calculated 286 (280-300); Phosphorous 3.5 mg/dL (2.7-4.5); Potassium 4.1 mEq/L (3.5-5.1); Sodium 139 mEq/L (136-145); Total Protein 5.9 g/dL (6.4-8.9); eGFR For African Americans > 60 (> 60); eGFR For Non-African Americans > 60 (> 60)
[2021-03-06] MEDS ORDERED: *HR* OxyCODONE Immed Rel 5 MG TABLET PO PRN (12:00)
[2021-03-07] MEDS ORDERED: predniSONE 20 MG TABLET PO SCH (09:00)
[2021-03-07 11:10] VITALS: BP 139/80
== END 2021-03-07 12:37 | disposition home or self-care (01) ==
LOC: EMEROOARM 18:32 → 3BNU 18:32 → SUATTDRO 23:56 → 3BNU 03-06 00:51
PROVIDERS: ADMIT Student in an Organized Health Care Education/Training Program; ATTEND Internal Medicine